=== PATIENT | female | born 1960 | race Native Hawaiian/Other Pacific Islander ===

== ENCOUNTER 2017-07-09 11:46 | Outpatient (CLI) | payer OTHER | END 2017-07-09 11:47 | disposition short-term general hospital (02) | LOC: AMB 11:46 | DX: R09.2 Respiratory arrest (principal) ==

== ENCOUNTER 2017-07-09 11:47 | Observation (INO) | payer OTHER ==
[~2017-07-09] VITALS: Ht 165.1 cm; Wt 88.2 kg
[2017-07-09 11:50] VITALS: BP 148/98; TEMP 98.2
[2017-07-09 12:09] LABS: PLATELET COUNT 258 K/uL (152-353)
[2017-07-09 12:12] LABS: POTASSIUM 3.2 mmol/L (3.6-5.2)
[2017-07-09 12:26] LABS: PARTIAL THROMBOPLASTIN TIME 24.4 SECONDS (24.5-33.6)
[2017-07-09 13:42] VITALS: BP 149/82
[2017-07-09 16:18] VITALS: BP 119/76; TEMP 97.9; Ht 165.1 cm; Wt 88.2 kg
== END 2017-07-09 21:30 | disposition left against medical advice (07) ==
LOC: ED 11:47 → MED/SURG 12:40
PROVIDERS: ADMIT Family Medicine
DX: T50.991A Poisoning by other drugs, medicaments and biological substances, accidental (unintentional), initial encounter (principal); J96.00 Acute respiratory failure, unspecified whether with hypoxia or hypercapnia; E87.1 Hypo-osmolality and hyponatremia; E87.6 Hypokalemia; F19.10 Other psychoactive substance abuse, uncomplicated; Y92.89 Other specified places as the place of occurrence of the external cause
CPT/HCPCS: 36600; 80053; 80307; 80320; 80329; 81000; 82550; 82805; 84484; 85027; 85610; 85730; 93005; 94664; 96365; 96366; 96374; 99220; 99284; G0378; G0479; J2310; J7120